=== PATIENT | male | born 1970 | race Caucasian/White ===

== ENCOUNTER 2020-04-30 22:20 | Inpatient (IN) | payer OTHER ==
[~2020-04-30] VITALS: Ht 193 cm; Wt 125.2 kg
--- NOTE | ~2020-04-30 | EMS ---
[address] [address] EMS Patient Care Report Name: PRIMO NOLASCO Room #: REG LESLIE Louis#: [id number] Admission: 04/30/20 Attend Phys: Discharge: Date of : 70 Report #: [id number] THIS REPORT FOR: //name// Report Transmitted: 04/30/2020 23:55 EMS Care Summary [facility] Incident [id number] @ 04/30/2020 21:08 Incident Location [address] [place] [address] Patient PRIMO NOLASCO Male, 49 Years 1970 Patient Address [address] [place] [address] Patient History Hypertension (HTN),Hyperlipidemia,Sleep Apnea, Patient Allergies No known allergies, Patient Medications Omeprazole, Atorvastatin, Hydrocodone, Morphine, Metoprolol, Lisinopril, Chief Complaint "I hurt my hip" Disposition Transported No Lights/[place] [facility] Reason Falls Transported To [facility] Narrative Upon arrival pt was found with JCFD1 and pt's family numbers. Pt was laying on the floor, supine, by a reclining chair. Pt was complaining of severe R hip pain. Upon arrival rapid assessment was performed. Crew was informed that pt had R hip replacement earlier today at a surgery center. Pt came back home at [address] [address] EMS Patient Care Report Name: PRIMO NOLASCO Room #: REG Heriberto#: [id number] Admission: 04/30/20 Attend Phys: Discharge: Date of : 70 Report #: [id number] approximately 1600 hr. Pt had a nerve block done at the time of surgery and pt stated he believed the block had still been affecting him this afternoon. Pt stated that earlier in the afternoon he fell from standing position unto the floor but did not suffer any injury. Tonight pt was attempting to get p from a reclining chair using a walker when his R leg "gave out" and caused him to fall. Pt stated that at the time of falling his R leg rotated inwardly. Pt thinks he might had fallen on his R hip. Pt developed severe R hip pain after falling and was unable to get up. Pt's family members called 911. Pt denied head, neck, or back pain. Pt is not on blood thinners. Vitals were obtained. IV access was obtained. Pt was given 100 mcg Fentanyl IV. Pt was moved to [facility] with spine board, was secured, and was transported. Pt was placed on monitor car operator. Detailed assessment was done en route being normal or not significant except where noted. Vitals were monitored and rechecked. Pt's pain became tolerable during transport. Pt care was transferred to ED RN. Pt was moved to ED bed without complications. Initial Vitals @21:29P: 83,SpO2: 96, @21:44P: 85,SpO2: 93,SD Suspected: false @22:00P: 79,R: 20,BP: 111/55,Pain: 2/10,GCS: 15,SpO2: 91,Revised Trauma: 12, @21:46P: 85,R: 20,BP: 109/66,Pain: 4/10,GCS: 15,Temp: 96F,SpO2: 91,Revised Trauma: 12, @21:19P: 87,R: 24,BP: 119/74,Pain: 10/10,GCS: 15,SpO2: 93,Revised Trauma: 12, @21:56P: 81,SpO2: 88, Assessments @21:54MENTAL:No Abnormalities,SKIN:No Abnormalities,HEENT:Head/Face: No Abnormalities,Eyes: No Abnormalities,Neck/Airway: No Abnormalities,LUNG SOUNDS:General: No Abnormalities,Left Upper: No Abnormalities,Right Upper: No Abnormalities,Left Lower: No Abnormalities,Right Lower: No Abnormalities,ABDOMEN:General: No Abnormalities,Left Upper: No Abnormalities,Right Upper: No Abnormalities,Left Lower: No Abnormalities,Right Lower: No Abnormalities,PELVIS//GI:No Abnormalities,EXTREMITIES:Right Leg: Other,PULSE:NEURO: Impression Injury Procedures @21:30Fentanyl - 100 Micrograms (mcg) - Intravenous (IV)Response: Improved@21:20Saline Lock 0cc (18 ga) Site: Forearm-RightResponse: UnchangedFailed@21:23Saline Lock 10cc (20 ga) Site: Hand-RightResponse: ImprovedSucceeded Timeline 21:06,Call Received [address] [address] EMS Patient Care Report Name: PRIMO NOLASCO Room #: REG LESLIE Louis#: [id number] Admission: 04/30/20 Attend Phys: Discharge: Date of : 70 Report #: [id number] 21:06,Psap Call 21:08,Dispatched 21:09,En Route 21:14,On Scene 21:16,At Patient 21:19,BP: 119/74 M,PULSE: 87,RR: 24 R,SPO2: 93 Ox,ETCO2: ,BG: ,PAIN: 10,GCS: 15, 21:20,Saline Lock 0cc 18 ga Site: Forearm-Right,Response: UnchangedFailed, 21:23,Saline Lock 10cc 20 ga Site: Hand-Right,Response: ImprovedSucceeded, 21:29,BP: / M,PULSE: 83,RR: R,SPO2: 96 Ox,ETCO2: ,BG: ,PAIN: ,GCS: , 21:30,Fentanyl - 100 Micrograms (mcg) - Intravenous (IV),Response: Improved 21:42,Depart Scene 21:44,BP: / M,PULSE: 85,RR: R,SPO2: 93 Ox,ETCO2: ,BG: ,PAIN: ,GCS: , 21:46,BP: 109/66 M,PULSE: 85,RR: 20 R,SPO2: 91 Ox,ETCO2: ,BG: ,PAIN: 4,GCS: 15, 21:56,BP: / M,PULSE: 81,RR: R,SPO2: 88 Ox,ETCO2: ,BG: ,PAIN: ,GCS: , 22:00,BP: 111/55 M,PULSE: 79,RR: 20 R,SPO2: 91 Ox,ETCO2: ,BG: ,PAIN: 2,GCS: 15, 22:08,At Destination 22:34,Call Closed Disclaimer v1.1 Copyright 2020 [employer] This EMS Care Summary contains data elements from the applicable legal record (which may be displayed differently). It is designed to provide pertinent information for the following purposes: continuity of care, clinical quality, and state data reporting. The complete legal record is available to ED staff and administrators of the receiving hospital in [employer] Patient Tracker. All data is provided "as is."
[2020-04-30 22:23] VITALS: BP 92/54
[2020-04-30 23:48] LABS: ABSOLUTE NEUTROPHILS 11.9 thou/uL (1.4-8.2); BASOPHILS 0.1 % (0.0-2.0); HEMATOCRIT 29.3 % (42.0-52.0); HEMOGLOBIN 9.6 gm/dL (14.0-18.0); LYMPHOCYTES 5.9 % (24.0-44.0); MCH 28.4 pg (26.0-34.0); MCHC 32.6 g/dL (28.0-37.0); MCV 87.1 fL (80.0-100.0); MONOCYTES 7.6 % (1.0-8.0); PLATELET COUNT 229 thou/uL (150-400); POLYS 86.4 % (36.0-66.0); RBC 3.37 mil/uL (4.50-6.00); RDW 16.8 % (10.5-14.5); WBC 13.7 thou/uL (4.0-11.0)
[2020-04-30 23:52] LABS: CALCIUM 8.4 mg/dL (8.5-10.1)
[2020-05-01] VITALS (7 sets, daily range): BP systolic 92–132; BP diastolic 54–79
--- NOTE | 2020-05-01 02:29 | NUR ---
PATIENT AGREED TO CUT SHORTS TO ENABLE PEREZ PLACEMENT WITHOUT PAIN
[2020-05-01 05:35] LABS: HEMATOCRIT 25.7 % (42.0-52.0); HEMOGLOBIN 8.5 gm/dL (14.0-18.0); MCH 28.7 pg (26.0-34.0); MCHC 32.9 g/dL (28.0-37.0); MCV 87.4 fL (80.0-100.0); RBC 2.94 mil/uL (4.50-6.00); RDW 16.7 % (10.5-14.5); WBC 11.3 thou/uL (4.0-11.0)
[2020-05-01 05:46] LABS: CALCIUM 7.8 mg/dL (8.5-10.1); CREATININE 2.3 mg/dL (0.7-1.3); POTASSIUM 5.1 mmol/L (3.5-5.1)
--- NOTE | 2020-05-01 06:35 | NUR ---
PATIENT WAS A NEW ADMISSION TO THE UNIT THIS SHIFT. HE ARRIVED VIA CART FROM THE ER AND WAS TRANSFERRED TO THE BED WITHOUT INCIDENT. PATIENT IS ALERT AND ORIENTED AND ABLE TO FULLY PARTICIPATE IN CARE PLAN. PATIENTS CHIEF COMPLAINT IS PAIN IN HIS LEFT HIP DUE TO RECENT FRACTURE. VITAL SIGNS STABLE. PATIENT NPO FOR PROBABLE SURGERY TODAY. NURSE TO FULLY COMPLETE ADMISSION PROCESS AND INITIATE PLAN OF CARE.
[2020-05-01] MEDS ORDERED: CHILDREN'S ZYRT10 M1 PO (09:30)
[2020-05-01] MEDS ORDERED: FENOFIBRATE150 MG PO (09:33)
[2020-05-01] MEDS ORDERED: LISINOPRIL2.5 MG PO (09:38)
[2020-05-01] MEDS ORDERED: MAGNESIUM250 M1 PO (09:39)
[2020-05-01] MEDS ORDERED: METFORMIN HCL500 M3 PO (09:41)
[2020-05-01] MEDS ORDERED: TOPROL XL50 MG PO (09:42)
[2020-05-01] MEDS ORDERED: SUPER THERAVIT1 EACH PO (09:44)
[2020-05-01] MEDS ORDERED: OMEPRAZOLE 20 M20 M1 PO (09:44)
--- NOTE | 2020-05-01 11:13 | NUR ---
AAOX4. C/O RIGHT HIP PAIN; MEDICATED ALLOWED. ANTICIPATING RIGHT HIP REPAIR REVISION LATER TODAY. NPO. PERMITS SIGNED. WILL CONTINUE TO FOLLOW CLOSELY.
--- NOTE | 2020-05-01 12:47 | NUR ---
RD consult received, unknown reason. Pt with hx dm, htn, depression, DJD. Had right hip fracture with OP surgical intervention yesterday. Was discharged home fell and now admit for repeat surgical intervention today. BG levels elevated. Unknown wt loss or intake. Rec advanced diet to carb controlled as tolerated. Available for followup if pt with dietary questions or concerns or not eating well. Otherwise low nutrition risk
--- NOTE | 2020-05-01 13:58 | NUR ---
Patient admits rec JANIYA yesterday outpatient then dc home and fell. he is to rec ARF. at bedside. upset regarding fall at home. She reports patient and spouse live in split level home with 12 steps to enter and another flight of steps inside. Patient has a walker if needed. reports she is not taking patient home until he can do steps. They have interest in HH care at dc and no preference. Patient and spouse report do not anticipate dc over weekend. HH referral to [facility]/Yusuf
--- NOTE | 2020-05-01 18:30 | NUR ---
BACK FROM SURGERY/PACU. VSS. REPORT FROM ANESTHESIA. DENIES PAIN. DRESSING RIGHT HIP CDI. DRAIN COMPRESSED, SANGUINOUS FLUID. 02 AT 4L PER ANESTHESIA. CALLED HIS TO REPORT. SR PER TELE. HIP PRECAUTIONS.
[2020-05-01 21:35] LABS: HEMATOCRIT 24.4 % (42.0-52.0); HEMOGLOBIN 8.3 gm/dL (14.0-18.0)
[2020-05-02] VITALS (9 sets, daily range): BP systolic 104–120; BP diastolic 55–70
--- NOTE | 2020-05-02 04:03 | NUR ---
ASSESSED AT START OF SHIFT. PT C/O PAIN MANAGED WITH PO AND IV PAIN MEDS. RT HIP DRESSING INTACT WITH MINIMAL DRIED BLOOD. HEMOVAC IN PLACE AND 70CC OUTPUT DRAINED. ICE BAG PLACED FOR COLD THERAPY. OLD IV WENT BAD PT STATED HURTS NO REDNESS OR SWELLING. NEW 22G IV INSERTED IN LEFT HAND. SCD'S AND TEDHOSE IN PLACE. BLOODSUGAR CHECKED WITH COVERAGE. PT ATE DINNER DENIES NAUSEA. FALL PREC IN PLACE, CALL LIGHT IN REACH WILL CONT TO MONITOR.
[2020-05-02 06:58] LABS: HEMATOCRIT 23.1 % (42.0-52.0); HEMOGLOBIN 7.7 gm/dL (14.0-18.0); MCH 29.2 pg (26.0-34.0); MCHC 33.4 g/dL (28.0-37.0); MCV 87.7 fL (80.0-100.0); RBC 2.63 mil/uL (4.50-6.00); RDW 16.8 % (10.5-14.5); WBC 7.6 thou/uL (4.0-11.0)
--- NOTE | 2020-05-02 11:32 | EKG ---
[facility] [place] [address] ELECTROCARDIOGRAM REPORT Name: PRIMO NOLASCO Room #: 214-P ADM IN M.R.#: [id number] Admission: 05/01/20 Attend Phys: Marci Valladares MD Discharge: Date of : 70 Report #: [id number] THIS REPORT FOR: cc: FAM - Family physician unknown FAM - Family physician unknown Nikolas Suarez MD ~ THIS REPORT FOR: //name// [facility] ED Test Date: 2020-05-01 Test Time: 00:53:03 Pat Name: PRIMO NOLASCO Department: Room: [facility] Gender: M Hotel Manager: CHELSEY : 1970 Requested By: Cory Cloud Order Number: [id number] MD: Nikolas Suarez Measurements Intervals [place] Rate: 83 P: 42 SC: 170 QRS: -12 QRSD: 92 T: 25 QT: 365 QTc: 429 Interpretive Statements Sinus rhythm No previous ECG available for comparison Electronically Signed On 05-02-2020 11:32:12 CDT by Nikolas Suarez [email or web address] <ELECTRONICALLY SIGNED> By: Nikolas Suarez MD 05/02/20 1132 0053 0053 Nikolas Suarez MD /SHAKIR
--- NOTE | 2020-05-02 11:45 | NUR ---
PT ASSESSED, VSS, MEDS REVIEWED AND GIVEN, PT VERBALIZED UNDERSTANDING, POC REVIEWED, PT/OT IN TO WORK WITH PT, PT UP TO CHAIR FOR A WHILE AND THEN BACK TO BED, R HIP/THIGH DRESSING CDI, NO HEMATOMA NOTED, PT RESTING IN BED, WILL MONITOR
[2020-05-02 16:41] LABS: HEMATOCRIT 20.9 % (42.0-52.0); HEMOGLOBIN 6.9 gm/dL (14.0-18.0)
[2020-05-02 16:42] LABS: MCH 29.3 pg (26.0-34.0); MCHC 33.2 g/dL (28.0-37.0); RBC 2.37 mil/uL (4.50-6.00); RDW 17.1 % (10.5-14.5); WBC 7.1 thou/uL (4.0-11.0)
[2020-05-03] VITALS (7 sets, daily range): BP systolic 103–140; BP diastolic 63–77
[2020-05-03 04:39] LABS: POTASSIUM 4.3 mmol/L (3.5-5.1)
[2020-05-03 04:42] LABS: CREATININE 1.3 mg/dL (0.7-1.3)
[2020-05-03 05:16] LABS: HEMATOCRIT 21.6 % (42.0-52.0); HEMOGLOBIN 7.2 gm/dL (14.0-18.0); MCH 29.2 pg (26.0-34.0); MCHC 33.4 g/dL (28.0-37.0); MCV 87.6 fL (80.0-100.0); RBC 2.47 mil/uL (4.50-6.00); RDW 16.4 % (10.5-14.5); WBC 5.5 thou/uL (4.0-11.0)
--- NOTE | 2020-05-03 08:06 | NUR ---
Patient assessed and is alert x 4. skin warm and dry. RIGHT BINTA DRESSING DRY AND INTACT. ICE PACK TO AREA. RIGHT HIP PRECAUTIONS. TEDS AND SCD'S ON. LEFT AC FLUSHES WELL HASN AT 150 /HOUR. PATIENT VS TAKEN WILL TRANSFUSE 1 UNIT OF PACK CELLS. BLOOD STARTED AND INFUSED. PATIENT GAETANO WELL. VOIDS PER URINAL. TELE- SHOWS NSR. TAKING FLUIDS WELL. PAIN MEDICATION GIVEN WITH SOME RELIEF EXCEPT THIS AM. HAD PAIN FENTANYL BUT PAIN STILL WAS A 5, AFTER 45 MINUTES. NO STOOL THIS SHIFT.LUNGS CTA. ACCU CHECSK DONE AND BS WAS 154. RECEIVED 3 UNITS OF INSULIN. CONT PLAN OF CARE. TURNS SELF IN BED. NO EDEMA NOTED TO LOWER ESTREMITIES.
--- NOTE | 2020-05-03 08:13 | NUR ---
RECEIVED ORDER FOR COVID SWAB, SWAB NOSTRIL AND SENT TO LAB.
[2020-05-03 10:43] LABS: HEMATOCRIT 22.8 % (42.0-52.0); HEMOGLOBIN 7.5 gm/dL (14.0-18.0)
--- NOTE | 2020-05-03 16:05 | O ---
[facility] [place] [address] OPERATIVE REPORT Name: PRIMO NOLASCO Room #: 214-P ADM IN M.R.#: [id number] Admission: 05/01/20 Attend Phys: Marci Valladares MD Discharge: Date of : 70 Report #: [id number] THIS REPORT FOR: cc: ILANA - Family physician unknown ILANA - Family physician unknown Clyde Samano MD ~ CC: Marci Valladares [employer] unknown DATE OF SERVICE: 05/01/2020 PREOPERATIVE DIAGNOSIS: Right periprosthetic femur fracture with an unstable femoral stem. POSTOPERATIVE DIAGNOSIS: Right periprosthetic femur fracture with an unstable femoral stem. PROCEDURES: 1. Revision of right total hip arthroplasty stem only. 2. ORIF, right proximal femur fracture with cerclage cable. SURGEON: Clyde Samano M.D. ANESTHESIA: General. IMPLANTS: [employer] Accord cable x 5 for proximal femur fixation and a size 17 high offset Synergy press-fit stem with a size 40 -4 Oxinium head. ESTIMATED BLOOD LOSS: 200 mL. COMPLICATIONS: None. SPECIMENS: None. CONDITION UPON LEAVING THE OPERATING ROOM: Stable. INDICATIONS FOR PROCEDURE: The patient is a 49-year-old gentleman who had a right total knee arthroplasty performed by myself yesterday 04/30/2020. He was discharged home the same day; however, unfortunately he fell at home last evening and was unable to get up and he was brought by EMS to the Emergency Room and found to have a periprosthetic hip secondary to his fall. After discussion with him and his , they elected for revision total hip arthroplasty with ORIF of the proximal femur. DESCRIPTION OF PROCEDURE: Risks, benefits, alternatives, complications were discussed in detail with the patient including but not limited to risk of [facility] [address] [place] [address] OPERATIVE REPORT Name: PRIMO NOLASCO LOND[place]ERRY Room #: 214-P [facility] IN M.R.#: [id number] Admission: 05/01/20 Attend Phys: Marci Valladares MD Discharge: Date of : 70 Report #: [id number] anesthesia, risk of damage to nerves, arteries, blood vessels, risk for infection, bleeding, risk for continued hip pain, leg length discrepancy, instability and need for reoperation. Informed consent was obtained from the patient. IV Ancef was given for preoperative antibiotics. He was brought to the operating room and placed in the supine position on the operating room table. General anesthesia was induced without complication. He was then placed in the left lateral decubitus position with the right hip uppermost. Right hip and lower extremity were prepped and draped in normal sterile fashion. Timeout was performed properly identifying the patient and procedure as well as the instrumentation and implants. All in the operating room were in agreement. Previous incision was opened with a #10 blade. This was extended distally with a 10 blade through the skin. Dissection was taken down to fascia with Bovie cautery. Fascia was opened with a 10 blade. Charnley retractor was placed. Large hematoma was decompressed and there was noted to be a periprosthetic fracture of the medial calcar of the femur and the hip was dislocated and the femoral stem was removed. The fracture was then cleaned out, thoroughly irrigated and held reduced manually. Five cerclage cables were then passed reducing the fracture. These were tensioned and tightened. A cross-table lateral x-ray was then taken to verify adequate reduction of the proximal femur. This was verified via x-ray and the femoral canal was then reamed up to a size 17 and broached to a size 17 and a size 17 broach was stable. This was trialed with a 40 -4 head. Hip was reduced, taken through range of motion, found to be stable, found to have equal leg lengths. Intraoperative x-ray again was performed and found to have good fit and fill of the broach. Hip was dislocated. A final size 17 high offset Synergy press fit stem was placed and seated. This was trialed with a 40 -4 head. Hip was reduced, taken through range of motion, found to be stable, found to have equal leg lengths. Hip was dislocated and a final size 40 -4 Oxinium head was placed. Wound was thoroughly irrigated with normal saline. Capsule was repaired with 0 FiberWire. A gram of vancomycin was placed deep in the joint. A deep drain was placed deep to the fascia. Fascia was closed with 0 Vicryl, skin was closed with 2-0 Vicryl, skin staple and a BINTA dressing was applied. The patient tolerated this procedure well and went to recovery room under care of anesthesia postoperatively. <ELECTRONICALLY SIGNED> By: Clyde Samano MD 05/03/20 1605 1726 1750 Clyde Samano MD /wesley
--- NOTE | 2020-05-03 18:49 | NUR ---
RECEIVED PT'S CARE AROUND 715; PT. ALERT; C/O PAIN; ST. "HELP ME, HELP ME"; PER RUBBER TUBING BACKER NURSE PRN IV PAIN MEDICATION GIVEN AROUND 614; CHECK EMAR; SCHEDULED PAIN MEDICATION GIVEN; RE-ASSESSMENT PT. RESTING WITH EYES CLOSED; AM MEDICATIONS GIVEN; DURING ASSESSMENT EDUCATED ABOUT PAIN MANAGEMENT; ST. UNDERSTANDING; HMG ON THE 7; HH RE-ORDERED PER DR. ALEGRIA; UP TO 7.5; PER PHYSICIAN TRANSFUSE ONE UNIT OF BLOOD; ORDERS PUT IT IN; PT. NOTIFIED; SR MOST OF THE MORNING; DURING THE LATE EVENING ST ON THE MONITOR; BLOOD TRASFUSION STARTED AT 1823 DUE TO BLOOD BANK DID NOT NOTICE ORDERS IN THE MORNING OR AFTERNOOON UNTIL ELEVATOR INSTALLER APPRENTICE CALLED; TOLERATED WELL DURING THE FIRST 15 MIN; MONITORING; PT. TAKEN TO X-RAY; RESULTS IN THE SYSTEM; ASSESSMENT CHARGED; FOLLOWING POC; WILL PASS ON REPORT;
[2020-05-04] VITALS (7 sets, daily range): BP systolic 124–159; BP diastolic 66–87
[2020-05-04 05:16] LABS: HEMATOCRIT 25.7 % (42.0-52.0); HEMOGLOBIN 8.7 gm/dL (14.0-18.0); MCH 29.8 pg (26.0-34.0); MCHC 33.8 g/dL (28.0-37.0); MCV 88.2 fL (80.0-100.0); RBC 2.91 mil/uL (4.50-6.00); RDW 16.7 % (10.5-14.5); WBC 5.6 thou/uL (4.0-11.0)
--- NOTE | 2020-05-04 06:43 | NUR ---
ASSESSMENT DOCUMENTED.PT A/OX4.SP R HIP ORIF.PT PAIN CONTROLLED AT THIS TIME.PT HAD A TOUGH TIME WITH PAIN AT THE BEGINNING OF THE SHIFT,C/O SHOOTING PAIN TO RIGHT HIP AND THE THIGH,PAIN MEDS WAS GIVEN ORDERED ALONG WITH ICE PACKS.TOOK TIME FOR THE PAIN TO BE CONTROLLED,PT BECAME VERY RESTLESS ADN ANXIOUS,ASSISTED TO SIDE OF THE BED TO STRETCH THAT HE VOICED HELPED WITH PAIN A LITTLE,ANXIETY MEDS WAS GIVEN AND PT WAS ABLE TO RELAX AND FELL ASLEEP.BINTA DRESSING TO RIGHT HIP CDI,SOME EDEMA NOTED TO RIGHT THIGH AND HIP AREA.TRANSFUSION COMPLETED W/O ADVERSE REACTION.PT VOICES PAIN RELIEF THIS AM.NPO AFTER MIDNOC.NO OTHER CONCERNS VOICED AT THIS TIME.WILL CONT TO MONITOR PER POC.
--- NOTE | 2020-05-04 13:39 | NUR ---
SPOKE WITH ALDO IN INTAKE AT [facility] SHE CAN ACCEPT AT DISCHARGE. DP TO FOLLOW.
--- NOTE | 2020-05-04 18:32 | NUR ---
ASSUMED CARE AT SHIFT CHNAGE, ALERT AND ORIENTED X4. ASSESSMENT DOCUMENTED, AND VSS. C/O RT HIP MEDICATED INDICATED. S/P EVACUATION RT HIP HEMATOMA AND ARIIVED TO UNIT AT 1800, VSS AND BG AT 118. PATIENT IS DROWSY AND COOPERATIVE AND FOLLOWS SIMPLE COMMANDS. RT HIP HEMOVAC INPLACE DRAINING BRIGHT RED BLOOD, BINTA DRESSING INTACT TO RT HIP, AND WILL CONTINUE TO MONITOR PATIENT VS,O2 SAT, AND RT HIP INCISION.
[2020-05-05 05:03] LABS: HEMATOCRIT 26.7 % (42.0-52.0); HEMOGLOBIN 8.9 gm/dL (14.0-18.0); MCH 29.6 pg (26.0-34.0); MCHC 33.4 g/dL (28.0-37.0); MCV 88.6 fL (80.0-100.0); RBC 3.02 mil/uL (4.50-6.00); WBC 5.4 thou/uL (4.0-11.0)
[2020-05-05 05:06] VITALS: BP 144/96
--- NOTE | 2020-05-05 05:37 | NUR ---
ASSESSMENT DOCUMENTED.PT S/P HIP ORIF W/HEMATOMA EVACUATION YESTERDAY.BINTA DRESSING CDI.HEMOVAC IN PLACE,DRAINED 160CC OF SEROSANGUOUS DRAINAGE.PT C/O BURNING PAIN THAT IS CONTROLLED WITH PAIN MEDS PER ORDERS.VOIDING ADEQUATELY VIA URINAL.IVF INFUSING.SR/STACHY ON MONITOR.PT DENIES ANY OTHER NEEDS AT THIS TIME.WILL CONTINUES TO MONITOR PER POC.
[2020-05-05 07:42] VITALS: BP 152/95
--- NOTE | 2020-05-05 13:57 | NUR ---
Spoke with Maynor in PT, patient and . Patient has multiple steps to enter home. reports patient needs to utilize steps prior to home. [facility] to eval. [facility] evaled and sp with patient. They are inquiring with insurance acute rehab benefit.
--- NOTE | 2020-05-05 15:42 | NUR ---
PATIENT SEEN THIS DATE FOR REHAB CONSULT BY ANDREE JOHNSON NP WITH DR. THOMAS. PATIENT IS A CANDIDATE FOR ACUTE REHAB. AUTHORIZATION REQUESTED THIS DATE.
[2020-05-05 15:58] VITALS: BP 100/63
--- NOTE | 2020-05-05 17:55 | NUR ---
ASSESSMENT DOCUMENTED, ALERT AND ORIENTED X4, WITH LOW GRADE FEVER TODAY, OTHER VSS. PAIN MED AND TYLENOL ORDERED.HEMOVAC DISCONTINUED. TOLERATED PT AND OT WELL TODAY. WILL CONTINUE WITH POC
[2020-05-05 19:48] VITALS: BP 111/64
[2020-05-06 04:39] LABS: HEMATOCRIT 26.5 % (42.0-52.0); HEMOGLOBIN 8.9 gm/dL (14.0-18.0); MCH 29.7 pg (26.0-34.0); MCHC 33.5 g/dL (28.0-37.0); MCV 88.5 fL (80.0-100.0); RDW 16.6 % (10.5-14.5); WBC 5.3 thou/uL (4.0-11.0)
[2020-05-06 04:45] LABS: CREATININE 1.3 mg/dL (0.7-1.3); POTASSIUM 4.1 mmol/L (3.5-5.1)
[2020-05-06 05:01] VITALS: BP 155/84
[2020-05-06 05:18] LABS: FOLIC ACID 8.3 ng/mL (8.6-58.9)
--- NOTE | 2020-05-06 05:20 | NUR ---
SLEPT MOST OF SHIFT PAST SLEEPING PILL. REPOSITIONS WITH ASSISTANCE NEEDED. NO PRESENT COMPLAINTS OF PAIN. WORKING ON GOALS AND PLAN OF CARE FOR NOC. PROGRESSING SLOWLY TOWARDS TRANSFER TO REHAB. CONTINUE TO SHAKIRA CURRY.
[2020-05-06 08:10] VITALS: BP 148/76
[2020-05-06] MEDS ORDERED: PERCOCET PO (09:13)
[2020-05-06] MEDS ORDERED: LIDOPATCH1 EACH TRANSDERM (09:13)
[2020-05-06] MEDS ORDERED: PROTONIX40 M2 PO (09:13)
[2020-05-06] MEDS ORDERED: MS CONTIN15 MG PO (09:13)
[2020-05-06] MEDS ORDERED: FLOMAX0.4 MG PO (09:13)
[2020-05-06] MEDS ORDERED: SENOKOT8.6 MG PO (09:13)
[2020-05-06] MEDS ORDERED: NEURONTIN 300M300 M2 PO (09:13)
[2020-05-06 11:43] VITALS: BP 116/55
--- NOTE | 2020-05-06 14:46 | NUR ---
continue to wait for auth for [facility].
--- NOTE | 2020-05-06 15:01 | O ---
[facility] [place] [address] OPERATIVE REPORT Name: PRIMO NOLASCO Room #: 214-P [facility] IN M.R.#: [id number] Admission: 05/01/20 Attend Phys: Marci Valladares MD Discharge: Date of : 70 Report #: [id number] THIS REPORT FOR: cc: ILANA - Family physician unknown FAM - Family physician unknown Clyde Samano MD ~ CC: Marci PRECIADO unknown DATE OF SERVICE: 05/04/2020 PREOPERATIVE DIAGNOSIS: Right hip postoperative hematoma. POSTOPERATIVE DIAGNOSIS: Right hip postoperative hematoma. PROCEDURE: Evacuation of right hip hematoma. SURGEON: Clyde Samano M.D. PILLOWCASE CLEANER: Jessika Hdez P.A.-C. ANESTHESIA: LMA. FINDINGS: There is a large hematoma in the right hip. CONDITION UPON LEAVING THE OPERATING ROOM: Stable. ESTIMATED BLOOD LOSS: 100 mL. COMPLICATIONS: None. INDICATIONS FOR PROCEDURE: The patient is a 49-year-old gentleman who is 3 days out from a revision right total hip arthroplasty for periprosthetic femur fracture. He has gone on to develop a significant hematoma in his right hip and thigh. After discussion with him, he elected for evacuation of right hip hematoma. DESCRIPTION OF PROCEDURE: Risks, benefits, alternatives, complications were discussed in detail with the patient including but not limited to risk of anesthesia, risk of infection, continued hematoma formation and need for reoperation. Informed consent was obtained from the patient. Right hip was appropriately marked in the preoperative holding area. IV Ancef was given for preoperative antibiotics. He was brought to the operating room and general anesthesia was induced without complication. He was then transferred to the operating room table and placed in the left lateral decubitus position with the right hip uppermost. Right hip and lower extremity were prepped and draped in [facility] [address] [place] [address] OPERATIVE REPORT Name: GAURAVPRIMO JUSTINO Room #: 214-P [facility] IN ..#: [id number] Admission: 05/01/20 Attend Phys: Marci Valladares MD Discharge: Date of : 70 Report #: [id number] normal sterile fashion. Timeout was performed properly identifying the patient and procedure as well as the instrumentation. All in the operating room were in agreement. The previous jose e from the skin closure were removed and the skin was opened with a 10 blade. There was noted to be a large liquefying hematoma in the adipose layer. This was evacuated and thoroughly irrigated with normal saline. Fascia was opened about 2 inches with a 10 blade and hematoma deep to the fascia layer was evacuated and thoroughly irrigated. After this, the fascia was closed with 0 Vicryl, skin was closed with 2-0 Vicryl, skin staple and a BINTA dressing was applied. The patient tolerated this procedure well and went to recovery room under care of anesthesia postoperatively. <ELECTRONICALLY SIGNED> By: Clyde Samano MD 05/06/20 1501 1845 1855 Clyde Samano MD /wesley
[2020-05-06 16:34] VITALS: BP 99/50
[2020-05-06 19:36] VITALS: BP 124/68
[2020-05-07 01:06] LABS: GLYCOHEMOGLOBIN (HGB A1C) 7.8 % (4.8-5.6)
[2020-05-07 05:24] LABS: HEMATOCRIT 26.8 % (42.0-52.0); HEMOGLOBIN 8.9 gm/dL (14.0-18.0); MCH 29.3 pg (26.0-34.0); MCHC 33.2 g/dL (28.0-37.0); MCV 88.3 fL (80.0-100.0); RBC 3.04 mil/uL (4.50-6.00); RDW 16.7 % (10.5-14.5); WBC 5.5 thou/uL (4.0-11.0)
[2020-05-07 05:25] VITALS: BP 147/76
[2020-05-07 07:30] VITALS: BP 131/75
--- NOTE | 2020-05-07 08:25 | NUR ---
PT IS A&0X4, SBA, ROOM AIR, PAIN RELIEVED BY HIS PAIN MEDICATION, SEE SEPARATE INTERVENTIONS FOR ASSESSMENTS, CARDIAC MONITORED, IN GOOD SPIRITS, WONDERS IF HE'S GOING TO [facility] FOR REHAB PER NOTE. WILL CONTINUE TO MONITOR
--- NOTE | 2020-05-07 10:45 | NUR ---
Ins auth obtained for admission to [facility] acute rehab. They have a bed for the pt today. Pt is agreeable to the dc plan. He will advise his . [facility] cm to follow for possible hh referral when he discharges home from rehab.
[2020-05-07 11:10] VITALS: BP 117/61
== END 2020-05-07 13:58 | DRG 481 ==
LOC: ER 22:20 → 2N 05-01 01:48 → EROBS 05-01 01:48 → 2N 05-01 03:03
PROVIDERS: Emergency Medicine; Nurse Practitioner Family; Orthopaedic Surgery; ADMIT Hospitalist; ATTEND Hospitalist
PROC: 0QS604Z Reposition Right Upper Femur with Internal Fixation Device, Open Approach (ICD-10-PCS; principal; 2020-05-01)
PROC: 30233N1 Transfusion of Nonautologous Red Blood Cells into Peripheral Vein, Percutaneous Approach (ICD-10-PCS; 2020-05-02)
PROC: 0S990ZZ Drainage of Right Hip Joint, Open Approach (ICD-10-PCS; 2020-05-04)
DX: M97.01XA Periprosthetic fracture around internal prosthetic right hip joint, initial encounter (principal); N17.9 Acute kidney failure, unspecified; D62 Acute posthemorrhagic anemia; E87.5 Hyperkalemia; Z96.643 Presence of artificial hip joint, bilateral; I10 Essential (primary) hypertension; E78.5 Hyperlipidemia, unspecified; E11.9 Type 2 diabetes mellitus without complications; Z20.828 Contact with and (suspected) exposure to other viral communicable diseases; Y92.230 Patient room in hospital as the place of occurrence of the external cause; F32.9 Major depressive disorder, single episode, unspecified; Y83.1 Surgical operation with implant of artificial internal device as the cause of abnormal reaction of the patient, or of later complication, without mention of misadventure at the time of the procedure; R33.9 Retention of urine, unspecified; Z87.891 Personal history of nicotine dependence; Z79.899 Other long term (current) drug therapy
CPT/HCPCS: 10081; 50010; 50101; 50382; 50414; 50740; 51057; 51225; 51226; 51412; 53078; 56460; 56524; 56528; 57095; 57103; 57115; 57496; 58138; 58230; 58233; 58234; 62110; 62900; 70005

== ENCOUNTER 2020-05-07 11:06 | Inpatient (IN) | payer OTHER ==
[~2020-05-07] VITALS: Ht 193 cm; Wt 115.7 kg
--- NOTE | ~2020-05-07 | PLAN ---
[facility] [place] [address] REHAB UNIT PLAN OF CARE Name: PRIMO NOLASCO Room #: 509-P ADM IN M.R.#: [id number] Admission: 05/07/20 Attend Phys: Cassius Denny MD Discharge: Date of : 70 Report #: [id number] THIS REPORT FOR: //name// CC: Cassius Denny [facility] unknown DATE OF SERVICE: 05/09/2020 PROGRESS NOTE/OVERALL PLAN OF CARE SUBJECTIVE: The patient is seen back in followup. He was in no distress. Temperature 36.6, pulse 86, respirations 18, blood pressure 154/85. He has been working in therapies with transfers at a min assist level. Gait 250 feet with a front-wheeled walker with min assist. He has started working on stairs. In occupational therapy, he is needing min assist for lower extremity dressing. He has been on room air. He was in no distress when seen earlier. ASSESSMENT: 1. Right periprosthetic femur fracture, status post open reduction and internal fixation on 05/01/2020, weightbearing as tolerated. 2. Right hip hematoma, status post evacuation on 05/04/2020. 3. Degenerative arthritis, status post total hip arthroplasty on 04/30/2020. 4. Acute blood loss anemia, status post transfusion. 5. Acute renal insufficiency, resolving. 6. Hypertension. 7. Depression. 8. Hyperlipidemia. 9. Diabetes mellitus type 2. PLAN: The overall plan of care is based on the preadmission screen, post-admission physician evaluation and information garnered from therapy assessments. 1. Estimated length of stay is probably going to be the next 5-7 days and potentially longer as warranted. 2. Medical prognosis is reasonably good. 3. Anticipated interventions includes the interdisciplinary acute inpatient rehabilitation program. 4. Anticipated functional outcomes would be for the patient to become modified independent with transfers, mobility issues, gait training as well as steps. He does have a split level house. 5. Expected therapy by discipline is PT and OT 1 and 1-1/2 hours per day each five days a week throughout the duration [place] [address] REHAB UNIT PLAN OF CARE Name: RICHIETRINYPRIMO Room #: 509-P [facility] IN ..#: [id number] Admission: 05/07/20 Attend Phys: Cassius Denny MD Discharge: Date of : 70 Report #: [id number] stay. His discharge destination is back to the home setting. His does not work outside the home. By: [id number] Cassius Denny MD /[facility]
--- NOTE | ~2020-05-07 | HC ---
[facility] [place] [address] CONSULTATION Name: PRIMO NOLASCO Room #: 509-P ADM IN M.R.#: [id number] Admission: 05/07/20 Attend Phys: Cassius Denny MD Discharge: Date of : 70 Report #: [id number] THIS REPORT FOR: cc: ILANA - Family physician unknown ILANA - Family physician unknown Ayush Ruano PhD ~ CC: Cassius PRECIADO unknown DATE OF SERVICE: 05/10/2020 NEUROBEHAVIORAL STATUS EXAM AGE: 49. ATTENDING PHYSICIAN: Cassius Denny MD MEDIA SUPERVISOR: Ayush Ruano, Ph.D. CLINICAL PRESENTATION: The patient is a 49-year-old male admitted to the [facility] initially through the Emergency Room for a right periprosthetic femur fracture. On 04/30/2020, he underwent an outpatient total hip arthroplasty and was discharged home later that day. He had a fall that evening and was readmitted to the hospital. The patient underwent a right total hip arthroplasty revision with open reduction and internal fixation of the proximal periprosthetic femur fracture. His assessment on admission to the rehabilitation unit is a right periprosthetic femur fracture, status post open reduction and internal fixation on 05/01/2020, weightbearing as tolerated, the right hip hematoma, status post evacuation on 05/04/2020, degenerative arthritis, status post right hip total arthroplasty on 04/30/2020, acute blood loss anemia, status post transfusion, acute renal insufficiency, hypertension, diabetes mellitus type 2 with hemoglobin A1c of 7.8, a prior left total hip arthroplasty, hyperlipidemia, and vitamin D deficiency. A complete description of his medical condition and history can be found in his medical record. Neuropsychological consultation was requested to provide assistance in the assessment of cognitive and emotional status and to provide recommendations and services. Prior to this most recent medical event, he was living independently and living with his in their home. The patient has 3 children. 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 He is a high school graduate. TECHNIQUES UTILIZED: Clinical interview, review of medical records, staff consultation and behavioral observation, mini mental status exam 2 standard version and clock drawing. [facility] [address] [place] [address] CONSULTATION Name: PRIMO NOLASCO Room #: 509-P [facility] IN .R.#: [id number] Admission: 05/07/20 Attend Phys: Cassius Denny MD Discharge: Date of : 70 Report #: [id number] EXAMINATION FINDINGS: The patient was alert and cooperative with the assessment. He accurately described the reason for his hospitalization. He does appear to have variable level of recall regarding the events of hip fracture that required rehospitalization. He had been on the pain medication that may have been interfering with his level of arousal and alertness during the time of his rehospitalization. He reportedly has a history of treatment for OCD and bipolar disorder. Bipolar symptoms are described primarily as irritability and decreased tolerance for frustration and impulsivity. He reports increased anxiety and depression currently. The patient was tearful when describing his family support, which is very good. The patient reports fatigue and tiredness during the day. He does not report difficulty with appetite. There is no report of alcohol or drug abuse prior to his hospitalization. He does carry diagnosis of sleep apnea for which he typically uses a CPAP, but has not been using them consistently. Performance on the MMSE 2 brief version was extremely low with a raw score of 8/16. He was 3/3 for initial registration, 4/5 for orientation to time, 1/[address] and 0/3 for immediate recall of 3 items after a brief time delay and distraction. Performance on the MMSE 2 standard version was extremely low with a raw score of 18/30 and a T score of 9. He was 2/5 for serial sevens, 2/2 for naming, 1/1 for repetition, 3/3 for auditory comprehension. He could read and follow single command and write a sentence. The patient was unable to complete accuracy copy a simple geometric design. Clock drawing was initially impaired for hand placement, but then self-corrected upon redirection to the task. The patient is presenting with an impairment in sustained attention and concentration along with immediate recall. Narcotic medication can be having an impact on his cognition. The patient and his are wanting to return home as soon as possible. However, his indicates a desire to make sure that he is going to be safe in ambulation to avoid a recurrence of his fracture. DIAGNOSTIC IMPRESSION: 1. Obsessive compulsive disorder. 2. Bipolar disorder. 3. Both OCD and bipolar disorder ____ by history. 4. Mild cognitive disorder, possibly secondary to narcotic pain medication. RECOMMENDATIONS: The patient will likely require assistance in the management of medication, finances and nutrition upon his return home. Driving should be discontinued until a more thorough evaluation of cognitive status. He may also benefit from the use of relaxation techniques along with behavioral pain management strategies to assist in overall adjustment. [facility] [address] [place] [address] CONSULTATION Name: PRIMO NOLASCO Room #: 509-P ADM IN .R.#: [id number] Admission: 05/07/20 Attend Phys: Cassius Denny MD Discharge: Date of : 70 Report #: [id number] Thank you very much for allowing me to provide the consultation on this patient. By: [id number] Ayush Ruano, PhD /nt
--- NOTE | ~2020-05-07 | H ---
[facility] [place] [address] HISTORY AND PHYSICAL Name: PRIMO NOLASCO Room #: 509-P ADM IN M.R.#: [id number] Admission: 05/07/20 Attend Phys: Cassius Denny MD Discharge: Date of : 70 Report #: [id number] THIS REPORT FOR: cc: ILANA - Family physician unknown ILANA - Family physician unknown Cassius Denny MD ~ CC: Cassius PRECIADO unknown DATE OF SERVICE: 05/07/2020 HISTORY AND PHYSICAL/POSTADMISSION PHYSICIAN EVALUATION HISTORY OF PRESENT ILLNESS: The patient is a 49-year-old male who originally presented to the Emergency Room after a fall at home and was found to have a right periprosthetic femur fracture. On 04/30/2020, the patient had an outpatient total hip arthroplasty and apparently was discharged to home later that day. He had a fall that evening and came into the hospital. On 05/01/2020, he had a right total hip arthroplasty revision with ORIF of the proximal periprosthetic femur fracture. He required packed red blood cells for anemia postop on 05/02/2020. He developed a surgical hematoma and on 05/04/2020 went to the OR for evacuation of the right hip hematoma by Orthopedics. He is allowed weightbearing as tolerated. GI was consulted for anemia. No endoscopies were recommended. He did initially have some acute renal insufficiency with a creatinine of 3 and potassium of 6.0 and was given some IV fluids with improvement. He has not been admitted for acute in-hospital inpatient rehabilitation. Prior medical history, allergies, social history, habits all per the history and physical documentation. ALLERGIES: No known drug allergies. MEDICATIONS: Please see the MAR. PAST MEDICAL HISTORY: Does include a prior left hip replacement in 11/2018. He now has the right hip replacement with the periprosthetic fracture as noted above. He does have a split level house. His does not work outside the home. REVIEW OF SYSTEMS: Please see the full listing as noted. No specific chest pain, shortness of breath or abdominal discomfort. PHYSICAL EXAMINATION: GENERAL: A pleasant 49-year-old white male in no obvious distress. The patient is alert, pleasant, appears to be a good historian. VITAL SIGNS: Last recorded temperature is 98, pulse 91, respirations 19, blood [address] [address] HISTORY AND PHYSICAL Name: PRIMO NOLASCO TENAFLY Room #: [address] [place] [address] IN .R.#: [id number] Admission: 05/07/20 Attend Phys: Cassius Denny MD Discharge: Date of : 70 Report #: [id number] pressure 128/63. HEENT: Facies are symmetric. CHEST: Sounded clear to auscultation. CARDIOVASCULAR: Regular rate and rhythm. ABDOMEN: Bowel sounds positive, nontender. EXTREMITIES: He has functional range of motion of both upper extremities with good strength. Lower extremities, the left lower extremity. He appears to have good strength at least a grade 4+/5 to 5-/5, right lower extremity has an ice pack in place. There is a dressing over the hip incision. He does have a negative Homans. There is some surrounding edema around the right thigh and hip. He is min assist coming to stand, min assist, ambulated short distance with a front-wheeled walker. He is needing more assistance as far as dressing at more of a max assist. ASSESSMENT: A 49-year-old white male with the following problem list: 1. Right periprosthetic femur fracture, status post open reduction and internal fixation on 05/01/2020, weightbearing as tolerated. 2. Right hip hematoma, status post evacuation on 05/04/2020. 3. Degenerative arthritis, status post right total hip arthroplasty on 04/30/2020. 4. Acute blood loss anemia, status post transfusion. 5. Acute renal insufficiency that is improving. 6. Hypertension. 7. Diabetes mellitus type 2, hemoglobin A1c 7.8. 8. Prior left total hip arthroplasty on 12/05/2018. 9. Hyperlipidemia. 10. Vitamin D deficiency. PLAN: The patient has been admitted for acute in-hospital inpatient rehabilitation. From a postadmission physician evaluation perspective, there are no relevant changes since the preadmission screening. Please see the above review of prior and current medical and functional conditions and comorbidities. Please see the patient's previous and current functional status. As far as risk of complications, includes the above noted comorbidities. Measurable functional goals would be for the patient to become modified independent with transfers, mobility and ADLs utilizing the walker. He needs to go up and down stairs as he does have a split level house. PROGNOSIS: Good with estimated length of stay probably around 7-14 days pending progress. Potential barriers would include his above noted comorbidities and decreased functional status. The patient meets diagnostic criteria for an acute in-hospital inpatient rehabilitation stay. He meets the medical necessity criteria and we will have [address] [address] HISTORY AND PHYSICAL Name: PRIMO NOLASCO Room #: 509-P ADM IN M.R.#: [id number] Admission: 05/07/20 Attend Phys: Cassius Denny MD Discharge: Date of : 70 Report #: [id number] the independent marketing consultant physicians continue to follow. He does have the tolerance for therapies and has appropriate discharge goals back to the home setting. By: [id number] Cassius Denny MD /PMT
[~2020-05-07 11:06] MED LIST: CHILDREN'S ZYRT10 M1 PO; FENOFIBRATE150 MG PO; FLOMAX0.4 MG PO; LIDOPATCH1 EACH TRANSDERM; LISINOPRIL2.5 MG PO; MAGNESIUM250 M1 PO; METFORMIN HCL500 M3 PO; MS CONTIN15 MG PO; NEURONTIN 300M300 M2 PO; OMEPRAZOLE 20 M20 M1 PO; PERCOCET PO; PROTONIX40 M2 PO; SENOKOT8.6 MG PO; SUPER THERAVIT1 EACH PO; TOPROL XL50 MG PO
--- NOTE | 2020-05-07 15:43 | NUR ---
PT WAS ADMITTED TO ROOM 509 FROM 214 AT APPROX 1330 WAS ACCOMPANIED BY SPOUSE. LINEN CLERK BROUGHT UP 2 BAGS OF PT'S BELONGINGS, GLASSES, BLACK CELL PHONE & WHITE TARGETING ACQUISITION OFFICER. PT'S WEARING FULL DENTURES. IS A&OX4. IS ON ROOM AIR. IS STABLE REPORTS PAIN 3/10 IN RIGHT HIP. BINTA DRSG HAS DRIED DRAINAGE & IS INTACT. FALL PRECAUTIONS & HOURLY ROUNDING IMPLEMENTED. CONSENTS SIGNED & IN CHART. PT WAS ORIENTED TO UNIT & ROOM. EDUCATION PROVIDED. ADMISSION BOOKLET PROVIDED & DISCUSSED WITH PT. ADMISSION ASSESSMENT, SEPSIS & EDUCATION COMPLETED. CONSULTS TO BE CALLED. NEW BAND APPLIED. SCD'S TO BE PLACED. PT VOIDS/ URINAL. IS UP WITH SBA, GB, WALKER/ REPORT. LABS & VITALS REVIEWED. LIDOCAINE PATCH TO RIGHT HIP. PT IS CURRENTLY IN BED WATCHING TV. CALL LIGHT WITHIN REACH. WILL CONTINUE TO MONITOR.
[2020-05-07 16:20] VITALS: BP 108/71
[2020-05-07 20:00] VITALS: BP 132/79
--- NOTE | 2020-05-08 | NUR ---
PT ASSESSMENT COMPLETED AND VSS. MEDS GIVEN ORDERED AND WELL TOLERATED. BED MENTAL HYGIENIST PLACED ON BED. CONTACTED OBSTETRICIAN GYNECOLOGIST BECAUSE PT WAS HAVING VERY BAD PAIN AND WAS TEARFUL. MEDICATIONS THAT PT WAS TAKING DOWNSTAIRS WERE REORDERED AND HELPFUL. PT'S PAIN IS NOW WELL CONTROLLED. DSG ON RIGHT HIP INTACT. PT VOIDING MODERATE AMOUNT OF YELLOW URINE PER URINAL. PLEASANT. BG CHECKED AND METFORMIN GIVEN ORDERED FOR A 164 BG. SLEEPING WELL. FALLS PRECAUTIONS IN PLACE. WILL CONTINUE TO MONITOR FREQUENTLY.
[2020-05-08 05:30] LABS: HEMATOCRIT 26.3 % (42.0-52.0); HEMOGLOBIN 8.8 gm/dL (14.0-18.0); MCH 29.4 pg (26.0-34.0); MCHC 33.5 g/dL (28.0-37.0); MCV 87.9 fL (80.0-100.0); RBC 2.99 mil/uL (4.50-6.00); RDW 16.8 % (10.5-14.5); WBC 5.4 thou/uL (4.0-11.0)
[2020-05-08 05:46] LABS: CALCIUM 8.7 mg/dL (8.5-10.1); CREATININE 1.2 mg/dL (0.7-1.3); POTASSIUM 4.2 mmol/L (3.5-5.1)
[2020-05-08 08:19] VITALS: BP 128/63
--- NOTE | 2020-05-08 12:10 | NUR ---
chart review, pt up working with visit with dr rodriguez. cm visited at bedside, cont to wear face mask and face shield during own visit. pt able to make his needs know. support from at home, independent with self care. have stairs at home. prior to used to work outside the home. have walker. would like to go home in week. will work hard in therapy to get to go home"/candace.
--- NOTE | 2020-05-08 19:53 | NUR ---
ASSUMED CARE OF PT AT 0700. PT IS A&OX4 AND VITAL SIGNS ARE STABLE. PT REPORTS RT HIP PAIN, MANAGED WITH PO MEDICATIONS. BINTA DRESSING INTACT TO THE RT HIP. ACCU CHECKS ACHS. IV TO RIGHT AC INTACT. FALL PRECAUTIONS IN PLACE AND NURSING WILL CONTINUE TO MONITOR.
[2020-05-08 20:53] VITALS: BP 134/67
--- NOTE | 2020-05-09 03:10 | NUR ---
ASSUMED CARE AT APPROX 1900 EVENING 05/08. PT ALERT AND ORIENTED X4, APPROPRIATE AND COOPERATIVE. PT VOIDING PER URINAL. PT TOOK HS MEDS WITH WATER TOLERATING WELL. PT APPEARS TO BE SLEEPING OFF AND ON DURING THIS NIGHT. BED ALARM ON AND CALL LIGHT IN REACH. WILL CONTINUE TO MONITOR.
[2020-05-09 08:00] VITALS: BP 154/85
--- NOTE | 2020-05-09 09:58 | HC ---
[facility] [place] [address] CONSULTATION Name: PRIMO NOLASCO Room #: 509-P ADM IN .R.#: [id number] Admission: 05/07/20 Attend Phys: Cassius Denny MD Discharge: Date of : 70 Report #: [id number] THIS REPORT FOR: cc: ILANA - Family physician unknown ILANA - Family physician unknown Sania Wolfe MD ~ CC: Cassius PRECIADO unknown DATE OF SERVICE: 05/08/2020 ENDOCRINE CONSULTATION NOTE CONSULTING PHYSICIAN: Dr. Denny. REASON FOR CONSULTATION: Type 2 diabetes mellitus. HISTORY OF PRESENT ILLNESS: This is a 49-year-old male patient who has sustained a right femoral fracture on 04/30 and was admitted at the time when he underwent a right JANIYA revision with ORIF of proximal periprosthetic femoral fracture. His course was complicated by a surgical hematoma that required evacuation. He has also dealt with issues of renal insufficiency, hyperkalemia, and anemia. The patient's background is noted for type 2 diabetes mellitus. When he was asked about his history with diabetes he did not seem to know the fine details, but indicated that he has been told multiple times that he is borderline. He has not been monitoring blood glucose whatsoever at home. He was vague on whether or not he was taking metformin regularly, although his medical records show that he was maintained on metformin 500 mg b.i.d. The patient is not aware of issues pertaining to diabetic retinopathy, neuropathy, or nephropathy. The patient is not known to have heart disease. He has a history of hypertension and is maintained on lisinopril 10 mg daily and metoprolol 50 mg daily. He is also dyslipidemic and is maintained on fenofibrate 150 mg daily. REVIEW OF SYSTEMS: CONSTITUTIONAL: Fatigue, tiredness, but not fever or chills or body weight changes. HEENT: Negative for sore throat, sinus pain or ear drainage. PULMONARY: Negative for shortness of breath, cough or hemoptysis. CARDIAC: Negative for chest pain, palpitations, syncope or presyncope. GASTROINTESTINAL: Negative for abdominal pain, nausea, vomiting or changes in bowel movement frequency. NEUROLOGY: Negative for loss of consciousness, severe frequent headaches or seizure activity. MUSCULOSKELETAL: The patient had suffered multiple health issues and is status [address] [address] CON[facility] Room #: [address] [place] [address] IN ..#: [id number] Admission: 05/07/20 Attend Phys: Cassius Denny MD Discharge: Date of : 70 Report #: [id number] post replacement of both hips. He has off and on diffuse joint and muscle aches. Otherwise, review of systems noncontributory unless mentioned in HPI. PAST MEDICAL HISTORY: 1. Type 2 diabetes mellitus. 2. Hypertension. 3. Hyperlipidemia. 4. Depression. 5. Degenerative joint disease, status post right and left hip replacements in 2019. 6. History of pneumothorax. 7. GERD. 8. Seasonal allergies. OUTPATIENT MEDICATIONS: Include: 1. Zyrtec 10 mg daily. 2. Fenofibrate 150 mg daily. 3. Lisinopril 10 mg daily. 4. Magnesium 200 mg daily. 5. Metformin 500 mg b.i.d. 6. Toprol-XL 50 mg daily. 7. Multivitamins daily. 8. Omeprazole 20 mg daily. ALLERGIES: No known drug allergies. FAMILY HISTORY: Noncontributory. SOCIAL HISTORY: He denies use of alcohol. He quit smoking in 07/2019, and has one child. PHYSICAL EXAMINATION: GENERAL: Pleasant male patient who is not in apparent pain or distress. VITAL SIGNS: Blood pressure is 128/63 mmHg, heart rate is 91 beats per minute, respiration 19 per minute, temperature 36.7 degrees Celsius. CONSTITUTIONAL: He is sitting in his reclining chair, appears comfortable, not in apparent distress. HEENT: Anicteric sclerae. Intact extraocular motions. NECK: Supple, without JVD, carotid bruits or lymphadenopathy. I do not appreciate thyromegaly. CHEST: Clear to auscultation with scattered rales, but no wheezes or crackles. HEART: Regular rate and rhythm without murmurs or gallops. ABDOMEN: Soft, lax. No guarding. Active bowel sounds. EXTREMITIES: Lower extremity exam, both lower extremities are in compression stockings. [address] [address] CONSULTATION Name: PRIMO NOLASCO Room #: 509-P [facility] IN M.R.#: [id number] Admission: 05/07/20 Attend Phys: Cassius Denny MD Discharge: Date of : 70 Report #: [id number] NEUROLOGIC: Awake, alert and oriented to time, place and person. He had some speech difficulties forming sentences, but with a normal thought content. The exam was largely nonfocal. PSYCHIATRIC: Pleasant, normal mood and affect. Normal thought process with stuttered speech. LABORATORY DATA: Blood glucose values were reviewed since admission and these have ranged consistently between 150 and 170 mg/dL. Sodium 135, potassium 4.2, chloride 99, CO2 of 29, anion gap 7, BUN 13, creatinine 1.2, glucose 140, calcium 8.7, EGFR 64. White blood count 5.4, hemoglobin 8.8, hematocrit 26.3, platelets 270. Hemoglobin A1c 7.8%. Vitamin D 16. ASSESSMENT AND PLAN: 1. Type 2 diabetes mellitus. As noted above, the patient seemed unsure whether or not he has type 2 diabetes mellitus. I counseled him at length about the pathogenesis of type 2 diabetes mellitus as well as the importance of achieving and maintaining adequate glycemic control to avoid future diabetic complications. His baseline hemoglobin A1c of 7.8% is reflective of inadequate control. However, having adopted the same regimen of Glucophage 500 mg b.i.d. during his hospital stay, he has done well so far and I would attribute this to the dietary differential between here and what he practiced at home. Given this outlook, I would like to continue with the current regimen and maintain Humalog supplemental scale for use as needed while we monitor his blood glucose values a.c. and at bedtime. 2. Hyperlipidemia. The patient is maintained on fenofibrate 160 mg daily and tolerates it well, he is to continue with the same. 3. Hypertension. The patient's level of blood pressure control is adequate, he is to continue with the current lisinopril, metoprolol regimen. 4. Vitamin D deficiency. This is severe at 16. I agree with starting the patient on high dose ergocalciferol therapy at 50,000 units weekly with a plan to keep this up for 8-12 weeks and then followup his progress on an outpatient basis. I certainly appreciate this consultation by Dr. Denny. <ELECTRONICALLY SIGNED> By: Sania Wolfe MD 05/09/20 [id number] Sania Wolfe MD /nt
[2020-05-09 19:35] VITALS: BP 136/67
--- NOTE | 2020-05-09 20:29 | NUR ---
ASSUMED CARE OF PT AT 0700. PT IS A&OX4 AND VITAL SIGNS ARE STABLE. PT REPORTS PAIN TO RIGHT HIP, MANAGED WITH PO MEDICAITONS AND ICE TO AREA. PT REQUESTED THAT STAFF GIVE SLEEP MEDICATIONS AT NIGHT AND WAS UPSET THAT HE WAS UNABLE TO GET MEDICAITON OVERNIGHT AND REPORTS POOR SLEEP. DISCUSSED PAIN AND SLEEP MANAGEMENT PLANS WITH PT. NURSING TO ENSURE THAT PAIN MEDICAITON TIMES ARE ON BOARD AND OFFER SLEEP MEDICATIONS TO PT AT 2100. BINTA DRESSING IN PLACE, DEVICE STOPPED AND WAS REMOVED. PT PARTICIPATED IN THERAPIES. FALL PRECATIONS IN PLACE AND NURSING WILL CONTINUE TO MONITOR.
--- NOTE | 2020-05-10 00:22 | NUR ---
assumed care approx 1900 evening 05/09. pt sitting up in recliner resting, texting on phone and watching tv. pt alert and oriented x4. pt stated he had a good day with therapy and feels like he made progress. pt voiding per urinal. pt given hs meds and pain meds as ordered. pt stated to this tag writer that he would like to have sleeping med as he forgot to request last night and as a result did not sleep well. pt given as requested tonight. pt appears to be sleeping at present. bed alarm on and call light in reach. will continue to monitor.
[2020-05-10 08:39] VITALS: BP 129/79
--- NOTE | 2020-05-10 15:45 | NUR ---
ASSUMED CARE OF PT AT 0715. PT IS A&OX4. IS ON ROOM AIR. IS STABLE. REPORTS PAIN IN RIGHT HIP THAT IS BEING MANAGED WITH ORAL & TOPICAL PAIN MEDS, ICE PACK & OTHER THEAPUETIC TECHNIQUES. BINTA D/I. IS UP WITH 1 ASSIST, GB, WALKER. FALL PRECAUTIONS & HOURLY ROUNDING CONTINUED THIS SHIFT. PT IS CURRENTLY SITTING IN RECLINER. CALL LIGHT WITHIN REACH. WILL CONTINUE TO MONITOR.
[2020-05-10 20:47] VITALS: BP 110/68
--- NOTE | 2020-05-11 04:03 | NUR ---
RECIEVED CARE OF THIS PAITNET AT 1900. PATIENT ALERT AND ORIENTED X4. PATIENT HAS BINTA DRESSING ON R HIP. C/O PAIN IN R HIP, SCHEDULED PAIN MED WAS GIVEN AND THEN PRN PAIN MED GIVEN X2. ACCUCHECK WAS 165, NO INSULIN COVERAGE WAS ORDERED. ICE BAG APPLIED TO HIP. SLEPT OFF AND ON DURING NIGHT.
[2020-05-11 08:00] VITALS: BP 121/77
--- NOTE | 2020-05-11 16:02 | NUR ---
ASSUMED CARE OF PT AT 0715. PT IS A&X4. IS ON ROOM AIR. IS STABLE. REPORTS PAIN IN RIGHT HIP THAT IS BEING MANAGED WITH PAIN MEDS, COLD THERAPY & OTHER THERAPUETIC TECHNIQUES. BINTA DRSG INTACT WITH DRIED DRAINAGE. LIDOCAINE PACTCH APPLIED THIS AM. IS UP MOD I & FRONT WHEELED WALKER IN ROOM. HOURLY ROUNDING CONTINUED THIS SHIFT. LABS & VITALS REVIEWED. PT IS CURRENTLY WORKING WITH THERAPIST. WILL CONTINUE TO MONITOR.
[2020-05-11 19:40] VITALS: BP 123/69
--- NOTE | 2020-05-12 01:57 | NUR ---
PT ASSESSMENT COMPLETED AND VSS. MEDS GIVEN ORDERED AND WELL TOLERATED. MOD I AND STEADY. DRESSING ON R HIP INTACT. PRN PAIN AND SLEEP MEDICATION HELPFUL. PT HAD SOME TROUBLE FALLING ASLEEP INITIALLY BUT DID SLEEP MOST OF THE NIGHT. PT DENIES NEEDS. WILL CONTINUE TO MONITOR FREQUENTLY.
[2020-05-12 06:09] LABS: BASOPHILS 0.4 % (0.0-2.0); EOSINOPHILS 4.6 % (0.0-3.0); HEMATOCRIT 26.4 % (42.0-52.0); HEMOGLOBIN 8.6 gm/dL (14.0-18.0); LYMPHOCYTES 28.8 % (24.0-44.0); MCH 28.7 pg (26.0-34.0); MCHC 32.7 g/dL (28.0-37.0); MONOCYTES 10.3 % (1.0-8.0); PLATELET COUNT 385 thou/uL (150-400); POLYS 55.9 % (36.0-66.0); RDW 16.7 % (10.5-14.5); WBC 5.4 thou/uL (4.0-11.0)
[2020-05-12 06:26] LABS: CALCIUM 9.2 mg/dL (8.5-10.1); CREATININE 1.2 mg/dL (0.7-1.3); MAGNESIUM 1.8 mg/dL (1.8-2.4)
[2020-05-12 09:00] VITALS: BP 125/79
[2020-05-12] MEDS ORDERED: PERCOCET 10-321 EACH PO (10:15)
[2020-05-12] MEDS ORDERED: FOLIC ACID1 MG PO (10:16)
[2020-05-12] MEDS ORDERED: LISINOPRIL2.5 MG PO (10:16)
[2020-05-12] MEDS ORDERED: METFORMIN HCL500 M1 PO (10:16)
--- NOTE | 2020-05-12 12:40 | NUR ---
team meeting, dc today outpt pt, serc in [place] outpt physical therapy. been mod i in room with walk. will cont following as need for dc needs.
[2020-05-12 13:48] VITALS: BP 125/79
[2020-05-12 14:15] VITALS: BP 125/79
--- NOTE | 2020-05-12 16:06 | NUR ---
PT DISCHARGING HOME TODAY WITH OUTPT PHYSICAL THERAPY FAXED REFERRAL TO [facility] THERAPY SPOKE WITH [facility] IN INTAKE THEY RECEIVED REFERRAL AND WILL CALL PT TO SET UP THERAPY.
--- NOTE | 2020-05-12 20:44 | NUR ---
ASSUMED CARE OF PT AT 0700. PT IS A&OX4 AND VITAL SIGNS ARE STABLE. PT REPORTS PAIN TO RIGHT HIP, MANAGED WITH PO MEDICATIONS. SURGERY CHANGED DRESSING. PT INSTRUCTED TO LEAVE DRESSING IN PLACE, NO SHOWERS, BATHS, OR SOAKING UNTIL F/U WITH SURGERY PER ORDERS FROM SURGERY. RASH TO GROIN NOTED AND NYSTATIN POWDER ORDERED AND APPLIED TO AREA. ORDERS FOR DISCHARGE TODAY. DISCUSSED DISCHARGE MEDICATIONS, INSTRUCTIONS, EDUCATION, AND F/U APPOINTMENTS. PRESENT FOR DISCHARGE EDUCATION. DENIES QUESTIONS. SCRIPTS FOR MEDICAITONS AND THERAPY PROVIDED AND PLACED IN DISCHARGE PACKET. BELONGINGS REMOVED FROM ROOM BY . NURSING ASSISTED PT TO MEDICAL MALL FOR DISCHARGE AND WAS ASSISTED INTO VEHICLE WITH MODERATE ASSISTANCE.
== END 2020-05-12 15:00 | disposition home or self-care (01) | DRG 560 ==
PROVIDERS: Nurse Practitioner; Nurse Practitioner Family; ADMIT Physical Medicine & Rehabilitation; ATTEND Physical Medicine & Rehabilitation
DX: M97.01XA Periprosthetic fracture around internal prosthetic right hip joint, initial encounter (principal); D62 Acute posthemorrhagic anemia; N17.9 Acute kidney failure, unspecified; E11.9 Type 2 diabetes mellitus without complications; I10 Essential (primary) hypertension; E78.5 Hyperlipidemia, unspecified; F32.9 Major depressive disorder, single episode, unspecified; M19.90 Unspecified osteoarthritis, unspecified site; K21.9 Gastro-esophageal reflux disease without esophagitis; F42.9 Obsessive-compulsive disorder, unspecified; Z96.643 Presence of artificial hip joint, bilateral; E55.9 Vitamin D deficiency, unspecified; W18.39XA Other fall on same level, initial encounter; Y93.89 Activity, other specified; Y92.89 Other specified places as the place of occurrence of the external cause; Y99.8 Other external cause status; S70.01XA Contusion of right hip, initial encounter; Z79.899 Other long term (current) drug therapy; Z87.891 Personal history of nicotine dependence
CPT/HCPCS: 10112